=== PATIENT | female | born 1945 | race Asian ===

== ENCOUNTER 2017-04-16 13:55 | Emergency (ER) | payer MEDICARE, OTHER ==
[~2017-04-16] VITALS: Ht 152.4 cm; Wt 59.1 kg
[~2017-04-16 13:55] MED LIST: ALEN70TA5 PO; BENZ1TAB61 PO; CARV6.252 PO; DIVA250T14 PO; DIVA500T2 PO; HYDR10TA4 PO; LITH150C PO; RISP0.5T3 PO; SIMV40TA3 PO
[2017-04-16] MEDS ORDERED: MECLIZINE CHEWABLE 25 MG TAB ONE (14:27)
[2017-04-16] MEDS ORDERED: MECLIZINE CHEWABLE 25 MG TAB PO ONE (14:30)
[2017-04-16 15:50] VITALS: BP 127/65
== END 2017-04-16 15:52 | disposition home or self-care (01) ==
LOC: ED 15:00
DX: H81.11 Benign paroxysmal vertigo, right ear (principal); H81.391 Other peripheral vertigo, right ear
CPT/HCPCS: 93005; 99283

== ENCOUNTER → 2017-05-02 | Outpatient (CLI) | payer MEDICARE, OTHER ==
[2017-05-02 15:36] LABS: BLOOD UREA NITROGEN 16 mg/dL (7-18)
== END | disposition home or self-care (01) ==
LOC: CFH 14:39
PROVIDERS: ATTEND Registered Nurse
DX: E78.5 Hyperlipidemia, unspecified (principal)
CPT/HCPCS: 36415; 80069

== ENCOUNTER 2017-11-24 19:21 | Emergency (ER) | payer MEDICARE, OTHER ==
[~2017-11-24] VITALS: Ht 152.4 cm; Wt 61.6 kg
[2017-11-24] MEDS ORDERED: ALBUTEROL/IPRATROPIUM 2.5MG/0.5MG, 3 ML NPPB ONE (20:00)
[2017-11-24] MEDS ORDERED: ALBUTEROL/IPRATROPIUM 2.5MG/0.5MG, 3 ML ONE (21:27)
[2017-11-24 22:01] VITALS: BP 142/69
== END 2017-11-24 22:03 | disposition home or self-care (01) ==
LOC: ED 21:50
DX: R05 Cough (principal); R06.2 Wheezing; I10 Essential (primary) hypertension
CPT/HCPCS: 71046; 94640; 99284; J7512; J7620

== ENCOUNTER 2018-01-16 15:52 | Emergency (ER) | payer MEDICARE, OTHER ==
[~2018-01-16] VITALS: Ht 152.4 cm; Wt 59.1 kg
[2018-01-16 16:08] VITALS: BP 124/69
[2018-01-16] MEDS ORDERED: ACETAMINOPHEN 325 MG TABLET ONE (17:12)
[2018-01-16] MEDS ORDERED: ACETAMINOPHEN 325 MG TABLET PO ONE (17:30)
== END 2018-01-16 17:39 | disposition home or self-care (01) ==
LOC: ED 17:33
DX: S40.012A Contusion of left shoulder, initial encounter (principal); S80.02XA Contusion of left knee, initial encounter; I10 Essential (primary) hypertension; W07.XXXA Fall from chair, initial encounter; M81.0 Age-related osteoporosis without current pathological fracture; Y93.89 Activity, other specified; Y92.89 Other specified places as the place of occurrence of the external cause; Y99.8 Other external cause status
CPT/HCPCS: 99284

== ENCOUNTER → 2018-10-18 | Outpatient (CLI) | payer MEDICARE, OTHER ==
[~2018-10-18] MED LIST changes: -ALEN70TA5 PO; +ALEN70TA6 PO
== END | disposition home or self-care (01) ==
LOC: CFH 09:44
PROVIDERS: ATTEND Nurse Practitioner
DX: M81.0 Age-related osteoporosis without current pathological fracture (principal); N95.8 Other specified menopausal and perimenopausal disorders
CPT/HCPCS: 77080

== ENCOUNTER 2019-03-12 16:11 | Emergency (ER) | payer MEDICARE, OTHER ==
[~2019-03-12] VITALS: Ht 152.4 cm; Wt 55.6 kg
[2019-03-12 16:29] VITALS: BP 124/60
== END 2019-03-12 18:29 | disposition home or self-care (01) ==
LOC: ED 18:05
DX: H10.022 Other mucopurulent conjunctivitis, left eye (principal); I11.9 Hypertensive heart disease without heart failure; Z98.61 Coronary angioplasty status
CPT/HCPCS: 99283

== ENCOUNTER 2019-07-08 00:50 | Emergency (ER) | payer MEDICARE, OTHER ==
[~2019-07-08] VITALS: Ht 149.9 cm; Wt 55.0 kg
[2019-07-08 00:51] VITALS: BP 176/71
[2019-07-08] MEDS ORDERED: PROPARACAINE OPHTH 0.5%, 15ML ONE (00:59)
[2019-07-08] MEDS ORDERED: FLUORESCEIN OPHTHALMIC 1 MG STRIP ONE (00:59)
== END 2019-07-08 01:42 | disposition home or self-care (01) ==
LOC: ED 01:31
DX: H10.022 Other mucopurulent conjunctivitis, left eye (principal); B37.3 Candidiasis of vulva and vagina; I11.9 Hypertensive heart disease without heart failure
CPT/HCPCS: 99283

== ENCOUNTER → 2020-12-18 | Outpatient (CLI) | payer MEDICARE, OTHER ==
[~2020-12-18] MED LIST changes: -ALEN70TA6 PO; +ALEN70TA77 PO; +HYDR-2995 PO; -HYDR10TA4 PO; -RISP0.5T3 PO; +RISP0.5T62 PO; +SIMV40TA20 PO; -SIMV40TA3 PO
== END | disposition home or self-care (01) ==
LOC: CFH 08:17
PROVIDERS: ATTEND Nurse Practitioner
DX: M81.0 Age-related osteoporosis without current pathological fracture (principal); N95.8 Other specified menopausal and perimenopausal disorders
CPT/HCPCS: 77080